=== PATIENT | female | born 1945 | race Caucasian/White ===

== ENCOUNTER 2022-02-24 16:21 | Observation (INO) | payer MEDICARE ==
[~2022-02-24] VITALS: Ht 162.6 cm; Wt 68.5 kg
[2022-02-24 19:13] LABS: HEMOGLOBIN 14.6 gm/dl (12.3-15.3); RED BLOOD COUNT 5.12 M/UL (4.00-5.10); WHITE BLOOD COUNT 4.2 K/UL (4.5-11.0)
[2022-02-24 19:55] LABS: BUN/CREATININE RATIO 19 (0-10)
[2022-02-25] MEDS ORDERED: ALPRAZOLAM0.25 MG PO (10:32)
[2022-02-25] MEDS ORDERED: HYDROCHLOROTHIA25 MG PO (10:33)
[2022-02-25] MEDS ORDERED: PROTONIX40 MG PO (10:33)
[2022-02-25] MEDS ORDERED: TRAMADOL HCL50 MG PO (10:34)
[2022-02-25] MEDS ORDERED: GABAPENTIN600 MG PO (10:34)
[2022-02-25] MEDS ORDERED: CIPRODEX OTIC7.5 ML EARBOTH (10:36)
[2022-02-25] MEDS ORDERED: ESTRADIOL1 EAC1 TD (10:37)
[2022-02-25] MEDS ORDERED: MECLIZINE HCL25 MG PO (10:38)
[2022-02-25] MEDS ORDERED: LEVOTHYROXINE25 MCG PO (10:39)
[2022-02-25] MEDS ORDERED: DOXAZOSIN MESYLA1 MG PO (10:40)
[2022-02-25] MEDS ORDERED: FLONASE 0.05% N16 GM (10:42)
[2022-02-25] MEDS ORDERED: MELATONIN5 M2 PO (10:43)
[2022-02-25] MEDS ORDERED: ASPIRIN EC81 MG PO (10:43)
[2022-02-25] MEDS ORDERED: VITAMIN C500 M4 PO (10:44)
[2022-02-25] MEDS ORDERED: VITAMIN E100 UNI2 PO (10:45)
== END 2022-02-25 18:25 | disposition home or self-care (01) ==
LOC: ER1 16:21 → M/S 21:21 → CDU 21:21 → M/S 23:45
PROVIDERS: Physician Assistant; ADMIT Internal Medicine
DX: R07.89 Other chest pain (principal); I16.9 Hypertensive crisis, unspecified; E78.5 Hyperlipidemia, unspecified; F41.9 Anxiety disorder, unspecified; I12.9 Hypertensive chronic kidney disease with stage 1 through stage 4 chronic kidney disease, or unspecified chronic kidney disease; N18.9 Chronic kidney disease, unspecified; E87.6 Hypokalemia; K21.9 Gastro-esophageal reflux disease without esophagitis; Z79.82 Long term (current) use of aspirin; Z79.51 Long term (current) use of inhaled steroids; Z79.890 Hormone replacement therapy; Z79.899 Other long term (current) drug therapy; Z82.49 Family history of ischemic heart disease and other diseases of the circulatory system
CPT/HCPCS: ECHO; 36415; 71045; 78452; 80053; 80061; 82550; 82553; 83036; 83690; 83735; 84100; 84132; 84439; 84443; 84484; 84550; 85025; 86140; 93005; 93017; 93306; 96374; 96375; 96376; 99285; A9502; C9113; G0378; J0360; J2785